=== PATIENT | female | born 1990 | race Two or more races ===

== ENCOUNTER 2018-01-04 15:13 | Emergency (ER) | payer OTHER ==
--- NOTE | 2018-01-05 14:20 | OBHP ---
Datetime: 01/04/2018 16:18 IP Adm Impression: Term, intrauterine ; No Active Labor IP Admit Plan: Observation/Evaluation; Discharge home Admit Comment, IP Provider: with IUP at 38+wks reports here today c/o intermittent pelvic press ure and pain. She reports pain scale of 2/10 and denies any VB or LOF. Pt denies any urinary symptoms PMHx: unremarkable OB: , Miscarriage X1, PNC with Dr Hanson. SHx: No Toxic Habits X3 O: Appears well Heart: SiS2, RRR Chest - CTA B/L Abd: Soft,NT,BS - Present TOCO- Q 6-10, irregular FHR- Category 1, regular Cx: FT/40/-3, Vtx felt, Membranes intact. Assessment: IUP at 38wks NST Reactive No Active Labor Plan: D/c Home Labor Instructions given kick counts, report when reduction in movements F/U with Dr Hasnon if no established labor. Pelvic Type - PN: Adequate Extremities - PN: Normal Abdomen - PN: Normal Back - PN: Normal Breast - PN: Normal Lungs - PN: Normal Heart - PN: Normal Thyroid - PN: Normal Neurologic - PN: Normal HEENT - PN: Normal General - PN: Normal Presentation-Admit: Vertex FHR - Baseline A Provider: 150 Membranes, Provider: Intact Contraction Comments Provider: Q 6-10 Gestation - Est Wks by US: 38.3 EGA AdmitDate IP: 38.3 IP Chief Complaint: Uterine contractions; Maternal discomfort NICHD Variability Prov Fetus A: Moderate 6-25bpm NICHD Accel Fetus A IP Provider: 15X15 FHR Category Provider Fetus A: Category I NICHD Decel Fetus A IP Provider: None Dilatation, Provider: FT Effacement, Provider: 40 Station, Provider: -3 Genitourinary Exam: Normal DTRs - PN: Normal
== END 2018-01-04 16:50 | disposition home or self-care (01) ==
LOC: H.EROB2 15:13
DX: O47.1 False labor at or after 37 completed weeks of gestation (principal); O26.93 Pregnancy related conditions, unspecified, third trimester; R10.2 Pelvic and perineal pain; Z3A.38 38 weeks gestation of pregnancy

== ENCOUNTER 2018-01-04 19:47 | Inpatient (IN) | payer OTHER ==
[2018-01-04 20:24] VITALS: BMI 26.9
[2018-01-04] MEDS: Lactated Ringer's 1,000 ML IV SCH ×2 (21:11→21:30)
[2018-01-04 21:15] VITALS: O2SAT 99
[2018-01-04] MEDS ORDERED: Oxytocin 30 units/LR 500ML 30 U/500 ML BAG IV ONE (21:21)
[2018-01-04 21:28] LABS: BASO # 0.1 K/uL (0.0-0.2); BASO % 0.5 % (0.0-2.0); EOS % 0.3 % (0.0-4.0); HEMOGLOBIN 13.5 g/dL (12.0-16.0); LYMPH # 3.4 K/uL (1.0-4.3); LYMPH % 30.8 % (20.0-40.0); MEAN CELL VOLUME 87.7 fl (81.0-99.0); MEAN CORPUSCULAR HEMOGLOBIN 29.7 pg (27.0-31.0); MEAN CORPUSCULAR HGB CONC 33.9 g/dL (33.0-37.0); MONO # 0.9 K/uL (0.0-0.8); MONO % 8.3 % (0.0-10.0); NEUT # 6.6 K/uL (1.8-7.0); NEUT % 60.1 % (50.0-75.0); RBC 4.53 Mil/uL (3.80-5.20); RED CELL DISTRIBUTION WIDTH 14.4 % (11.5-14.5)
[2018-01-05] MEDS: Lactated Ringer's 1,000 ML IV SCH ×3 (00:20→12:50)
--- NOTE | 2018-01-05 00:21 | OBADHP ---
Datetime: 01/04/2018 20:48 Admit Comment, IP Provider: 27 y/o F at 38.3 weeks GA, CHIKI 01/15/18 by LMP 04/10/17 and confirm ed with 1st trim US, presents to BUD c/o LOF that occured at 19:30. Pt report feeling uterine CTX ev rajesh 5 minutes. No VB, FM present. All systems reviewed and negative except as above. NKDA Meds: PNV PN Care: Dr Hanson at [facility] PN Labs: GBS neg, RPR neg, HIV neg OB Hx: , 1x SAB, 1x IAB PMHx: denied PSHx: denied FHx: NC SHx; denies tobacco, alcohol or rec drugs. A/P 27 y/o F with IUP at 38.3 weeks GA, with SROM and in active labor. --Admit to L and D --Initiate Labor protocol Case discussed with Dr Pope, OB physical education instructor [employer] PGY-1 Pelvic Type - PN: Adequate Extremities - PN: Normal Abdomen - PN: Normal Back - PN: Normal Lungs - PN: Normal Heart - PN: Normal Neurologic - PN: Normal HEENT - PN: Normal General - PN: Normal FHR - Baseline A Provider: 145 Amniotic Fluid Color, Provider: Clear Membranes, Provider: Ruptured Pool Provider: Positive Nitrazine Provider: Positive IP Hx Assessment: The History has been Reviewed and is Current Vital Signs Provider: Reviewed IP Chief Complaint: Suspected ruptured membranes NICHD Variability Prov Fetus A: Moderate 6-25bpm NICHD Accel Fetus A IP Provider: 15X15 FHR Category Provider Fetus A: Category I Dilatation, Provider: 5 Effacement, Provider: 80 Station, Provider: -2 Genitourinary Exam: Normal DTRs - PN: Normal EGA AdmitDate IP: 38.3 IP Adm Impression: Term, intrauterine IP Admit Plan: Admit to unit; Initiate labor protocol Datetime: 01/04/2018 16:18 Breast - PN: Normal Thyroid - PN: Normal Presentation-Admit: Vertex Contraction Comments Provider: Q 6-10 Gestation - Est Wks by US: 38.3 NICHD Decel Fetus A IP Provider: None
[2018-01-05] MEDS ORDERED: Fentanyl/Bupivacaine HCl 125 ML EPI ONE (00:27)
[2018-01-05] MEDS ORDERED: Fentanyl/Bupivacaine HCl 250 ML EPI ONE (00:27)
[2018-01-05] MEDS ORDERED: Bupivacaine HCl 0.25% PF (10 ml) Inj ONE (00:36)
[2018-01-05] MEDS ORDERED: Oxytocin 30 units/LR 500ML 30 U/500 ML BAG IV ONE (01:29)
[2018-01-05] MEDS ORDERED: Lidocaine 2% Inj (20ml) ONE (06:38)
[2018-01-05] MEDS ORDERED: Midazolam 2 MG/2 ML VIAL ONE (12:28)
[2018-01-05] MEDS ORDERED: Propofol 10 mg/ml Inj (20 ML) ONE (12:29)
--- NOTE | 2018-01-05 13:31 | OBDS ---
MATERNAL INFORMATION Delivery Anesthesia: Local; Epidural; General Medications in Delivery: pitocin Placenta Cultured: No RN Comments: to alive baby girl; apgar9/9;delivered (Annotations: Data stored by N on behalf of user) Provider Comments: of live female in ERIC presentation over midline episiotomy, nuchal co rd x 1 and compound presentation, 6lbs 10oz, followed by shoulders and rest of infant atraumatically, mouth and nose suctioned, cord clamped and cut, cord blood obtained, placenta delivered spontaneousl y, 3c laceration repaired with 2-0 and 3-0 vicryl rapide under conscious sedation, vaginal packing le ft and bladder drained at end of procedure LABOR SUMMARY EDC: 01/15/2018 00:00 No. Babies in Womb: 1 Attempted: No LABOR INFORMATION Reason for Induction: Not Applicable Group B Beta Strep: Negative (Annotations: 11-06-17) Steroids Given: None Reason Steroids Not Administered: Not Applicable MEMBRANES Membranes Rupture Method: Spontaneous Rupture of Membranes: 01/04/2018 19:30 Amniotic Fluid Color: Clear Amniotic Fluid Amount: Large Amniotic Fluid Odor: None BABY A INFORMATION Born in Route : No : N/A PRESENTATION/POSITION BABY A Presentation: Cephalic INFANT INFORMATION BABY A Gestational Age at Delivery: 38.3 Gestational Status: Term IDENTIFICATION/MEDS BABY A ID Band Number: [id number] ID Band Location: Left Leg; Left Arm
[2018-01-05] MEDS ORDERED: Benzocaine/Menthol SPRAY TOP PRN (13:35)
[2018-01-05] MEDS ORDERED: Oxycodone/Acetaminophen 5/325 mg Tab PO PRN ×4 (13:35→16:08)
[2018-01-05] MEDS ORDERED: Ammonia 2% Inhalant ONE (15:42)
[2018-01-05] MEDS ORDERED: Influenza Vaccine 18yr & older 0.5 ML/45 MCG SYR IM ONE (16:14)
[2018-01-06 07:07] LABS: BASO % 0.2 % (0.0-2.0); EOS # 0.1 K/uL (0.0-0.7); EOS % 0.5 % (0.0-4.0); HEMOGLOBIN 10.9 g/dL (12.0-16.0); LYMPH # 1.9 K/uL (1.0-4.3); LYMPH % 11.5 % (20.0-40.0); MEAN CELL VOLUME 88.5 fl (81.0-99.0); MEAN CORPUSCULAR HEMOGLOBIN 29.8 pg (27.0-31.0); MEAN CORPUSCULAR HGB CONC 33.6 g/dL (33.0-37.0); MEAN PLATELET VOLUME 9.4 fl (7.2-11.7); MONO % 6.1 % (0.0-10.0); NEUT # 13.7 K/uL (1.8-7.0); NEUT % 81.7 % (50.0-75.0); NRBC % 0.1 % (0.0-0.0); RBC 3.65 Mil/uL (3.80-5.20); RED CELL DISTRIBUTION WIDTH 14.7 % (11.5-14.5); WHITE BLOOD COUNT 16.8 K/uL (4.8-10.8)
[2018-01-06] MEDS: Multivitamin With Minerals Tab PO SCH (08:34)
[2018-01-06] MEDS: Benzocaine/Menthol SPRAY TOP PRN (08:34)
[2018-01-06] MEDS: Prenatal Multivit/Folic Acid/Iron Tab PO SCH (08:34)
[2018-01-06] MEDS ORDERED: Multivitamin With Minerals Tab PO SCH (09:00)
[2018-01-06] MEDS ORDERED: Prenatal Multivit/Folic Acid/Iron Tab PO SCH (09:00)
--- NOTE | 2018-01-06 17:21 | OBPPN ---
Datetime: 01/06/2018 17:19 PP Pain Prov: Within normal limits PP Nausea Prov: Denies PP Flatus Prov: Yes PP BM Prov: No PP Breasts Prov: Normal PP Heart Prov: Normal PP Lungs Prov: Normal PP Abdomen/Uterus Prov: Normal PP Lochia Prov: Normal PP Vulva/Perineum Prov: Normal PP CVA Tenderness Prov: Normal PP Extremities Prov: Normal PP Progress Prov: Normal PP Impression Prov: Normal progression PP Plan Prov: Continue present management PP Progress Note Prov: She feels fine (seen on rounds this morning) Vagina: No VB noted / Packing removed A: S/P day 1 PLAN: anticiapte discharge in AM Vital Signs Provider PP: Reviewed; Within Normal Limits
[2018-01-07] MEDS: Multivitamin With Minerals Tab PO SCH (09:52)
[2018-01-07] MEDS: Prenatal Multivit/Folic Acid/Iron Tab PO SCH (09:52)
[2018-01-07] MEDS: Benzocaine/Menthol SPRAY TOP PRN (09:54)
--- NOTE | 2018-01-07 14:42 | OBPPN ---
Datetime: 01/07/2018 14:40 PP Pain Prov: Within normal limits PP Nausea Prov: Denies PP Flatus Prov: Yes PP Breasts Prov: Not Done PP Heart Prov: Normal PP Lungs Prov: Normal PP Abdomen/Uterus Prov: Normal PP Lochia Prov: Not Done PP Vulva/Perineum Prov: Not Done PP CVA Tenderness Prov: Normal PP Extremities Prov: Normal PP Impression Prov: Normal progression PP Plan Prov: Discharge PP Progress Note Prov: Patient doing well ambulating tolerating diet reports minimal lochia Vital signs stable afebrile Uterus firm below the umbilicus day #2 Patient cleared for discharge Nothing per vagina, Motrin as needed, follow up with Vital Signs Provider PP: Reviewed
--- NOTE | 2018-01-07 14:42 | OBDCSUM ---
Datetime: 01/04/2018 16:23 Discharge Instructions, Provider: Routine instructions given Discharge Diagnosis, Provider: Term Delivered Contraception discussed, Prov: Yes Discharge Comment, Provider: Patient cleared for discharge Contraception after Delivery: Undecided
[2018-01-08 12:13] VITALS: BP 112/69; PULSE 73; RESP 20; TEMP 98.1
== END 2018-01-07 16:30 | disposition home or self-care (01) | DRG 775 ==
LOC: H.EROB2 19:47 → H.L&D 20:25 → H.OB/GYN 01-05 16:07
PROVIDERS: ADMIT Obstetrics & Gynecology; ATTEND Obstetrics & Gynecology
PROC: 10E0XZZ Delivery of Products of Conception, External Approach (ICD-10-PCS; principal; 2018-01-05)
PROC: 0W8NXZZ Division of Female Perineum, External Approach (ICD-10-PCS; 2018-01-05)
PROC: 3E0234Z Introduction of Serum, Toxoid and Vaccine into Muscle, Percutaneous Approach (ICD-10-PCS; 2018-01-05)
PROC: 0HQ9XZZ Repair Perineum Skin, External Approach (ICD-10-PCS; 2018-01-05)
DX: O32.6XX0 Maternal care for compound presentation, not applicable or unspecified (principal); O69.81X0 Labor and delivery complicated by cord around neck, without compression, not applicable or unspecified; O70.0 First degree perineal laceration during delivery; Z37.0 Single live birth; Z3A.38 38 weeks gestation of pregnancy; Z23 Encounter for immunization